=== PATIENT | male | born 1945 ===

== ENCOUNTER 2017-10-18 13:44 | Emergency (ER) | payer MEDICARE ==
[~2017-10-18] VITALS: Ht 180.3 cm; Wt 85.0 kg
[2017-10-18 13:44] VITALS: BP 169/81; PULSE 77; RESP 18; TEMP 98.5; O2SAT 98
[~2017-10-18 13:44] MED LIST: ASPI81 PO; LOVA10TA PO; METO100T PO
[2017-10-18 14:19] VITALS: BP 125/71; PULSE 72; RESP 15
[2017-10-18] MEDS ORDERED: SODIUM CHLORID 0.9% 500 ML INJ 500 ML IV ONE (14:30)
[2017-10-18] MEDS ORDERED: SODIUM CHLORIDE 0.9% FLUSH 10 ML FLUSH IVF PRN (14:30)
--- NOTE | 2017-10-18 14:36 | PD ---
HPI Chief Complaint: Cardiac Complaint Time Seen by Provider: 14:24 Travel History International Travel<30 days: No Contact w/Intl Traveler<30days: No Traveled to known affect area: No History of Present Illness HPI 72-year-old male presents the emergency department with reports of 30 minutes of palpitations earlier this morning. Patient states he was working on a clog drain with some chemicals, which she feels may have precipitated these symptoms. Patient has a history of atrial fibrillation. Patient states no chest pain, shortness of breath, nausea, vomiting, or weakness. Patient states currently he has no symptoms. He just wants to get it checked out. Patient is followed by Dr. Amaya. He has no known drug allergies. PFSH Past Medical History Arthritis: Yes Asthma: No Autoimmune Disease: No Blood Disorders: No Anxiety: No Depression: Yes Heart Rhythm Problems: No Cancer: No Cardiovascular Problems: Yes High Cholesterol: Yes Chemotherapy: No Chest Pain: No Congestive Heart Failure: No COPD: No Cerebrovascular Accident: No Diabetes: No Diminished Hearing: No Endocrine: No GERD: No Glaucoma: No Genitourinary: Yes (PROSTATE PROBLEMS; HIGH PSA LEVELS; HAD BIOPSY DONE 02/24/06) Headaches: No Hepatitis: No Hiatal Hernia: No Hypertension: Yes Immune Disorder: No Kidney Stones: No Musculoskeletal: Yes Neurologic: No Psychiatric: Yes (DEPRESSION MARKED ON SHEET) Reproductive: No Respiratory: No Myocardial Infarction: No Radiation Therapy: No Renal Failure: No Seizures: No Sickle Cell Disease: No Sleep Apnea: No Thyroid Disease: No Ulcer: No Influenza Vaccination: No Past Surgical History Abdominal Surgery: No AICD: No Arteriovenous Shunt: No Cardiac Surgery: No Ear Surgery: No Endocrine Surgery: No Eye Surgery: No Genitourinary Surgery: Yes (BIOPSY OF PROSTATE ON 02/24/06) Gynecologic Surgery: No Insulin Pump: No Joint Replacement: No Oral Surgery: No Pacemaker: No Thoracic Surgery: No Social History Alcohol Use: Yes (OCCASIONAL GLASS OF WINE) Tobacco Use: No Substance Use: No (MARIJUANA) Allergies-Medications (Allergen,Severity, Reaction): Coded Allergies: No Known Allergies (Verified , 05/22/11) Reported Meds & Prescriptions Reported Meds & Active Scripts Active Reported Lovastatin 10 Mg Tab 10 Mg PO Aspirin 81 Mg Tab 81 Mg PO DAILY Lopressor (Metoprolol Tartrate) 100 Mg Tab 100 Mg PO BID Review of Systems Except as stated in HPI: all other systems reviewed are Neg General / Constitutional: No: Fever Eyes: No: Visual changes HENT: No: Headaches Cardiovascular: No: Chest Pain or Discomfort Respiratory: No: Shortness of Breath Gastrointestinal: No: Abdominal Pain Genitourinary: No: Dysuria Musculoskeletal: No: Pain Skin: No Rash Neurologic: No: Weakness Psychiatric: No: Depression Endocrine: No: Polydipsia Hematologic/Lymphatic: No: Easy Bruising Physical Exam Narrative GENERAL: Patient appears no acute distress. He is comfortable and talking easily. SKIN: Warm and dry. Normal color. Normal turgor. No diaphoresis. HEAD: Atraumatic. Normocephalic. EYES: Pupils equal and round. No scleral icterus. No injection or drainage. ENT: No nasal bleeding or discharge. Mucous membranes pink and moist. NECK: Trachea midline. No JVD. Supple and nontender. CARDIOVASCULAR: Regular rate and rhythm. No murmurs gallops or rubs appreciated. RESPIRATORY: No accessory muscle use. Clear to auscultation. Breath sounds equal bilaterally. GASTROINTESTINAL: Abdomen soft, non-tender, nondistended. Hepatic and splenic margins not palpable. MUSCULOSKELETAL: Extremities without clubbing, cyanosis, or edema. No obvious deformities. NEUROLOGICAL: Awake and alert. No obvious cranial nerve deficits. Motor grossly within normal limits. Five out of 5 muscle strength in the arms and legs. Normal speech. PSYCHIATRIC: Appropriate mood and affect; insight and judgment normal. Data Data Last Documented VS Vital Signs Date Time Temp Pulse Resp B/P (MAP) Pulse Ox O2 Delivery O2 Flow Rate FiO2 10/18/17 14:21 60 Room Air 10/18/17 14:19 15 125/71 (89) 10/18/17 13:44 98.5 98 Orders Orders Electrocardiogram (10/18/17 14:27) B-Type Natriuretic Peptide (10/18/17 14:27) Ckmb (Isoenzyme) Profile (10/18/17 14:27) Complete Blood Count With Diff (10/18/17 14:27) Comprehensive Metabolic Panel (10/18/17 14:27) Magnesium (Mg) (10/18/17 14:27) Prothrombin Time / Inr (Pt) (10/18/17 14:27) Act Partial Throm Time (Ptt) (10/18/17 14:27) Troponin I (10/18/17 14:27) Chest, Single Ap (10/18/17 14:27) Ecg Monitoring (10/18/17 14:27) Bilateral Bp Monitoring (10/18/17 14:27) Iv Access Insert/Monitor (10/18/17 14:27) Oximetry (10/18/17 14:27) Oxygen Administration (10/18/17 14:27) Sodium Chloride 0.9% Flush (Ns Flush) (10/18/17 14:30) Sodium Chlorid 0.9% 500 Ml Inj (Ns 500 M (10/18/17 14:30) CKMB (10/18/17 15:55) CKMB% (10/18/17 15:55) Labs Laboratory Tests Test 10/18/17 15:55 White Blood Count 6.3 TH/MM3 Red Blood Count 4.87 MIL/MM3 Hemoglobin 15.2 GM/DL Hematocrit 44.9 % Mean Corpuscular Volume 92.3 FL Mean Corpuscular Hemoglobin 31.1 PG Mean Corpuscular Hemoglobin Concent 33.7 % Red Cell Distribution Width 13.1 % Platelet Count 221 TH/MM3 Mean Platelet Volume 10.2 FL Neutrophils (%) (Auto) 76.7 % Lymphocytes (%) (Auto) 13.9 % Monocytes (%) (Auto) 6.7 % Eosinophils (%) (Auto) 1.5 % Basophils (%) (Auto) 1.2 % Neutrophils # (Auto) 4.8 TH/MM3 Lymphocytes # (Auto) 0.9 TH/MM3 Monocytes # (Auto) 0.4 TH/MM3 Eosinophils # (Auto) 0.1 TH/MM3 Basophils # (Auto) 0.1 TH/MM3 CBC Comment DIFF FINAL Differential Comment Prothrombin Time 10.8 SEC Prothromb Time International Ratio 1.0 RATIO Activated Partial Thromboplast Time 26.3 SEC Blood Urea Nitrogen 13 MG/DL Creatinine 0.92 MG/DL Random Glucose 84 MG/DL Total Protein 7.0 GM/DL Albumin 4.0 GM/DL Calcium Level 8.3 MG/DL Magnesium Level 2.1 MG/DL Alkaline Phosphatase 58 U/L Aspartate Amino Transf (AST/SGOT) 24 U/L Alanine Aminotransferase (ALT/SGPT) 27 U/L Total Bilirubin 1.2 MG/DL Sodium Level 138 MEQ/L Potassium Level 3.9 MEQ/L Chloride Level 103 MEQ/L Carbon Dioxide Level 30.1 MEQ/L Anion Gap 5 MEQ/L Estimat Glomerular Filtration Rate 81 ML/MIN Total Creatine Kinase 156 U/L Creatine Kinase MB 2.3 NG/ML Troponin I LESS THAN 0.02 NG/ML B-Type Natriuretic Peptide 15 PG/ML MDM Medical Decision Making Medical Screen Exam Complete: Yes Emergency Medical Condition: Yes Medical Record Reviewed: Yes Differential Diagnosis A. fib with RVR. Palpitations. Cardiac syndrome. CHF. Narrative Course Patient appears medically stable at time of exam. EKG is performed. Chest x-ray is ordered. Labs ordered including CBC, CMP, cardiac panel, and proBNP. IV access is obtained and patient is given 500 mls normal saline bolus. EKG shows sinus rhythm with right bundle branch block as well as left anterior fascicular block which is unchanged from EKG from 2010. Labs show normal CBC, CMP is unremarkable. Troponin is normal. Chest x-ray is normal. Patient is reviewed with Dr. 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 Patient has an appointment on Thursday. She can return the verge department with recurrent symptoms as necessary. Diagnosis Primary Impression: Heart palpitations Referrals: [facility] Patient Instructions: General Instructions, Heart Palpitations (ED) Additional Instructions: EKG shows sinus rhythm with right bundle branch block as well as left anterior fascicular block which is unchanged from EKG from 2010. Labs show normal CBC, CMP is unremarkable. Troponin is normal. Chest x-ray is normal. Patient is reviewed with Dr. 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 Patient has an appointment on Thursday. She can return the verge department with recurrent symptoms as necessary. Med/Other Pt SpecificInfo: Prescription(s) given Disposition: DISCHARGE HOME Condition: Stable Devonte Cheney Oct 18, 2017 14:36
--- NOTE | 2017-10-18 15:19 | RADRPT ---
EXAM DATE/TIME: 10/18/2017 14:37 [facility] COMPARISON: No previous studies available for comparison. INDICATIONS : Palpitations and shortness of breath. MEDICAL HISTORY : Hypercholesterolemia. SURGICAL HISTORY : None. ENCOUNTER: Initial ACUITY: 1 day PAIN SCORE: 0/10 LOCATION: Bilateral chest FINDINGS: A single view of the chest demonstrates the lungs to be symmetrically aerated without evidence of mas s, infiltrate or effusion. The cardiomediastinal contours are unremarkable. Osseous structures are intact. CONCLUSION: The lungs are clear. Power Franklin MD on October 18, 2017 at 15:17 Board Certified Radiologist. This report was verified electronically.
--- NOTE | 2017-10-18 16:02 | PD ---
Physical Exam Date Seen by Provider: Oct 18, 2017 Narrative Patient presents with a chief complaint of palpitations and dizziness. Onset was about an hour prior presentation. He states these feeling a little bit better now. Data Data Last Documented VS Vital Signs Date Time Temp Pulse Resp B/P (MAP) Pulse Ox O2 Delivery O2 Flow Rate FiO2 10/18/17 14:21 60 Room Air 10/18/17 14:19 15 125/71 (89) 10/18/17 13:44 98.5 98 Orders Orders Electrocardiogram (10/18/17 14:27) B-Type Natriuretic Peptide (10/18/17 14:27) Ckmb (Isoenzyme) Profile (10/18/17 14:27) Complete Blood Count With Diff (10/18/17:) Comprehensive Metabolic Panel (10/18/17:) Magnesium (Mg) (10/18/17 14:27) Prothrombin Time / Inr (Pt) (10/18/17 14:27) Act Partial Throm Time (Ptt) (10/18/17 14:27) Troponin I (10/18/17 14:27) Chest, Single Ap (10/18/17 14:27) Ecg Monitoring (10/18/17 14:27) Bilateral Bp Monitoring (10/18/17 14:27) Iv Access Insert/Monitor (10/18/17:) Oximetry (10/18/17 14:27) Oxygen Administration (10/18/17 14:27) Sodium Chloride 0.9% Flush (Ns Flush) (10/18/17 14:30) Sodium Chlorid 0.9% 500 Ml Inj (Ns 500 M (10/18/17 14:30) MDM Supervised Visit with SCOTTY: Yes Narrative Course I, Dr. Roberson, have reviewed the advance practice practitioner's documentation and am in agreement, met with the patient face to face, made the diagnosis, and the medical decision making was done by me. *My assessment and Findings: Patient is awake and alert. His heart rate is probably about 70. His lungs sound clear. He is neurologically intact. Please see Lázaro Cheney PA-C's note for results of laboratory and radiographic evaluation, ED course, final diagnosis and disposition Condition: Stable Maria Del Carmen Roberson MD Oct 18, 2017 16:02
[2017-10-18 16:17] LABS: AUTOMATED NEUTROPHIL # 4.8 TH/MM3 (1.8-7.7); BASOPHIL # 0.1 TH/MM3 (0-0.2); BASOPHIL % 1.2 % (0.0-2.0); EOSINOPHIL # 0.1 TH/MM3 (0-0.4); EOSINOPHIL % 1.5 % (0.0-4.0); HEMATOCRIT 44.9 % (39.0-51.0); HEMO FLAGS DIFF FINAL; LYMPH % 13.9 % (9.0-44.0); LYMPHOCYTE # 0.9 TH/MM3 (1.0-4.8); MEAN CELL VOLUME 92.3 FL (80.0-100.0); MEAN CORPUSCULAR HEMOGLOBIN 31.1 PG (27.0-34.0); MEAN CORPUSCULAR HGB CONC 33.7 % (32.0-36.0); MONO % 6.7 % (0.0-8.0); NEUT % 76.7 % (16.0-70.0); PLATELET COUNT 221 TH/MM3 (150-450); RED BLOOD COUNT 4.87 MIL/MM3 (4.50-5.90); RED CELL DISTRIBUTION WIDTH 13.1 % (11.6-17.2); WHITE BLOOD COUNT 6.3 TH/MM3 (4.0-11.0)
[2017-10-18 16:27] LABS: APTT (PATIENT) 26.3 SEC (24.3-30.1); PROTHROMBIN TIME - PATIENT 10.8 SEC (9.8-11.6)
[2017-10-18 16:39] LABS: ANION GAP 5 MEQ/L (5-15)
[2017-10-18 16:46] LABS: ALKALINE PHOSPHATASE 58 U/L (45-117); ALT (GPT) 27 U/L (12-78); AST (GOT) 24 U/L (15-37); BICARBONATE 30.1 MEQ/L (21.0-32.0); BLOOD UREA NITROGEN 13 MG/DL (7-18); CHLORIDE 103 MEQ/L (98-107); CREATINE KINASE 156 U/L (39-308); GLOMERULAR FILTRATION RATE 81 ML/MIN (>89); MAGNESIUM 2.1 MG/DL (1.5-2.5); SODIUM (NA) 138 MEQ/L (136-145); TOTAL BILIRUBIN ADULT 1.2 MG/DL (0.2-1.0)
[2017-10-18 16:49] LABS: POTASSIUM 3.9 MEQ/L (3.5-5.1)
[2017-10-18 17:02] LABS: CKMB 2.3 NG/ML (0.5-3.6)
--- NOTE | 2017-10-18 20:53 | EKG ---
Date Performed: 10/18/2017 Time Performed: 15:16:39 PTAGE: 72 years EKG: Sinus rhythm RIGHT BUNDLE BRANCH BLOCK LEFT ANTERIOR FASCICULAR BLOCK MINIMAL VOLTAGE CRITERIA FOR LVH, CONSIDER NORMAL VARIANT ABNORMAL ECG PREVIOUS TRACING : 05/22/2011 16.57 No significant change from previous tracing noted. DOCTOR: Hans Manning Interpretating Date/Time 10/18/2017 20:53:22
== END 2017-10-18 19:02 | disposition home or self-care (01) ==
LOC: NEPC 13:44
DX: R00.2 Palpitations (principal); E78.00 Pure hypercholesterolemia, unspecified; I10 Essential (primary) hypertension; R94.31 Abnormal electrocardiogram [ECG] [EKG]
CPT/HCPCS: 71010; 80053; 82550; 82552; 83735; 83880; 84484; 85025; 85610; 85730; 93005; 99285